=== PATIENT | male | born 1990 ===

== ENCOUNTER 2017-07-18 09:57 | Emergency (ER) | payer MEDICAID ==
[~2017-07-18] VITALS: Ht 180.3 cm; Wt 90.7 kg
--- NOTE | 2017-07-18 10:10 | NUR ---
Pt.was seen by Cruz with new orders.
[2017-07-18] MEDS ORDERED: ALBUTEROL SULFATE 2.5 MG/3 ML NEBU NEB ONE ×2 (10:15→10:45)
[2017-07-18] MEDS ORDERED: IPRATROPIUM BROMIDE 0.5 MG/2.5 ML NEBU NEB ONE ×2 (10:15→10:45)
[2017-07-18] MEDS ORDERED: predniSONE 10 MG TABLET PO ONE (10:15)
[2017-07-18 10:24] LABS: BASOPHILS # (AUTO) 0.1 K/uL (0.0-8.0); BASOPHILS % (AUTO) 0.6 % (0.0-2.0); EOSINOPHILS # (AUTO) 0.8 K/uL (0.0-0.7); EOSINOPHILS % (AUTO) 6.1 % (0.0-7.0); HEMATOCRIT 47.5 % (36.7-47.1); HEMOGLOBIN 16.5 g/dL (12.5-16.3); LYMPHOCYTES % (AUTO) 30.2 % (20.5-51.5); MEAN CORPUSCULAR HEMOGLOBIN 29.5 uug (23.8-33.4); MEAN CORPUSCULAR HGB CONC 35 g/dL (32.5-36.3); MONOCYTES # (AUTO) 0.7 K/uL (2.0-10.0); MONOCYTES % (AUTO) 5.1 % (0.0-11.0); NEUTROPHILS # (AUTO) 7.6 K/uL (1.8-8.9); PLATELET COUNT (AUTO) 314 K/uL (152-348); RED BLOOD CELL COUNT(AUTO) 5.59 MIL/uL (4.06-5.63); WHITE BLOOD COUNT (AUTO) 13.1 K/uL (3.6-10.2)
[2017-07-18] MEDS ORDERED: IPRATROPIUM BROMIDE 0.5 MG/2.5 ML NEBU ONE ×2 (10:30→11:15)
[2017-07-18] MEDS ORDERED: ALBUTEROL SULFATE 2.5 MG/3 ML NEBU ONE ×2 (10:30→11:15)
[2017-07-18 10:31] LABS: POTASSIUM 4.1 mmol/L (3.5-5.1)
[2017-07-18] MEDS ORDERED: predniSONE 10 MG TABLET ONE (10:37)
--- NOTE | 2017-07-18 11:28 | NUR ---
Pt.on cont.HHN Tx,feeling more comfortble,no s/s of acute distress.
[2017-07-18 12:06] VITALS: BP 113/84
== END 2017-07-18 12:15 | disposition home or self-care (01) ==
LOC: ER 09:57
DX: J45.909 Unspecified asthma, uncomplicated (principal); F17.210 Nicotine dependence, cigarettes, uncomplicated
CPT/HCPCS: 36415; 71045; 85025; 93005; A4663; J3590; J7512

== ENCOUNTER 2017-08-22 21:56 | Emergency (ER) | payer MEDICAID ==
[~2017-08-22] VITALS: Ht 175.3 cm; Wt 83.9 kg
[2017-08-22] MEDS ORDERED: OLANZAPINE 10 MG VIAL IM ONE ×2 (23:00→23:14)
[2017-08-22] MEDS ORDERED: diphenhydrAMINE 50 MG/1 ML VIAL ONE (23:13)
[2017-08-22] MEDS ORDERED: diphenhydrAMINE 50 MG/1 ML VIAL IM ONE (23:15)
--- NOTE | 2017-08-22 23:20 | NUR ---
PATIENT YELLING,CONFUSED AND ATTEMPTING TO REMOVE HANDCUFFS. UNCOOPERATIVE WITH WITH [employer] AND ER STAFF MEMBERS. FRED ARITA CALLED
[2017-08-22] MEDS: diphenhydrAMINE 50 MG/1 ML VIAL IM ONE ×2 (23:24→23:34)
[2017-08-23] MEDS ORDERED: LORAZEPAM 2 MG/1 ML VIAL IM ONE (01:00)
[2017-08-23] MEDS ORDERED: LORAZEPAM 2 MG/1 ML VIAL ONE (01:35)
--- NOTE | 2017-08-23 04:20 | NUR ---
Patient calm,sleeping released restraints on patient
[2017-08-23 04:34] LABS: BASOPHILS % (AUTO) 0.3 % (0.0-2.0); EOSINOPHILS # (AUTO) 0.3 K/uL (0.0-0.7); EOSINOPHILS % (AUTO) 2.9 % (0.0-7.0); HEMATOCRIT 45.9 % (36.7-47.1); HEMOGLOBIN 15.4 g/dL (12.5-16.3); LYMPHOCYTES # (AUTO) 4.6 K/uL (20.0-40.0); MEAN CORPUSCULAR HEMOGLOBIN 29.1 uug (23.8-33.4); MEAN CORPUSCULAR HGB CONC 34 g/dL (32.5-36.3); MEAN CORPUSCULAR VOLUME 86.6 fL (73.0-96.2); MONOCYTES % (AUTO) 8.7 % (0.0-11.0); NEUTROPHILS # (AUTO) 5.3 K/uL (1.8-8.9); NEUTROPHILS % (AUTO) 47.1 % (38.5-71.5); PLATELET COUNT (AUTO) 285 K/uL (152-348); WHITE BLOOD COUNT (AUTO) 11.3 K/uL (3.6-10.2)
[2017-08-23 04:43] LABS: CARBON DIOXIDE 24 mmol/L (21-32); CHLORIDE 103 mmol/L (98-107); ETHANOL < 3 MG/DL (0-0); GLUCOSE 92 mg/dL (74-106); POTASSIUM 3.6 mmol/L (3.5-5.1); UREA NITROGEN, BLOOD 10 mg/dL (7-18)
[2017-08-23 04:49] LABS: ALANINE AMINOTRANSFERASE 41 U/L (16-63); ALKALINE PHOSPHATASE 110 U/L (50-136); ASPARTATE AMINOTRANSFERASE 38 U/L (15-37); BILIRUBIN,DIRECT 0.1 mg/dL (0.0-0.2); BILIRUBIN,TOTAL 1.1 mg/dL (0.2-1.0)
--- NOTE | 2017-08-23 05:00 | NUR ---
Patient sleeping and calm with no distress noted. Offered water, food and toilet but patient refused
--- NOTE | 2017-08-23 06:59 | NUR ---
Patient in bed sleeping, no acute signs of distress, has hard restraint on left arm.
--- NOTE | 2017-08-23 07:11 | NUR ---
Passed SBAR report to Preethi PARADA.
--- NOTE | 2017-08-23 07:11 | NUR ---
Jil higgins in ED - 08/23/17 at 0839 by DARIEL Received pt asleep, easily arousable- per previous nurse, this patient is still needs to void and provide urine sample & also for medical clearance, respiration:AYESHA roper
--- NOTE | 2017-08-23 07:11 | NUR ---
Hands off report received from previous nurse- 1.) pt needs to give urine specimen 2.) still for medical clearance by our ER doctor 3.) for possible psych evaluation after medical clearance. Patient is asleep, easily arousable by soft touch, HODGE, respiration:easy, skin warm and dry
--- NOTE | 2017-08-23 08:45 | NUR ---
Patient is more alert, pt refuses to give urine sample, MD is at bedside.
--- NOTE | 2017-08-23 12:22 | NUR ---
Lunch tray is at bedside. Patient is still sleeping, easily arousable, moving on the gurney spontaneously, respiration:nonlabored/easy, still for urine specimen & medical/psych clearance.
--- NOTE | 2017-08-23 14:19 | NUR ---
Patient is still refusing to provided urine sample. Patient is AOx4, calm & cooperative at this time, MD aware.
--- NOTE | 2017-08-23 14:31 | NUR ---
Patient eloped per MD.
== END 2017-08-23 14:37 | disposition left against medical advice (07) ==
LOC: EDBD → ER 21:56
DX: F29 Unspecified psychosis not due to a substance or known physiological condition (principal)
CPT/HCPCS: 36415; 85025; A4663; G0480; J1200; J2060; J2358

== ENCOUNTER 2017-08-23 17:22 | Emergency (ER) | payer MEDICAID ==
[~2017-08-23] VITALS: Ht 175.3 cm; Wt 83.9 kg
[2017-08-23] MEDS ORDERED: diphenhydrAMINE 50 MG/1 ML VIAL IM ONE (17:30)
[2017-08-23] MEDS ORDERED: LORAZEPAM 2 MG/1 ML VIAL IM ONE (17:30)
[2017-08-23] MEDS ORDERED: OLANZAPINE 10 MG VIAL IM ONE ×2 (17:30→17:32)
[2017-08-23] MEDS ORDERED: diphenhydrAMINE 50 MG/1 ML VIAL ONE (17:32)
[2017-08-23] MEDS ORDERED: LORAZEPAM 2 MG/1 ML VIAL ONE (17:33)
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
--- NOTE | 2017-08-23 19:15 | NUR ---
Hands off report to marty Pride for urine specimen, medical clearance & possible psych evaluation by our own benz[employer] worker.
--- NOTE | 2017-08-23 19:25 | NUR ---
RECEIVED REPORT FROM KARMA WISE. PT IN BED IN FOUR POINT RESTRAINTS. PT IS DISORIENTED AND AGITATED. NO SIGNS OF DISTRESS WITNESSED AT THIS TIME. Addendum: 08/23/17 at 1940 by SHALINI MD NOTIFIED OF PT'S CURRENTLY CONDITION.
[2017-08-23] MEDS ORDERED: HALOPERIDOL LACTATE 5 MG/1 ML VIAL IM ONE (19:45)
[2017-08-23] MEDS ORDERED: HALOPERIDOL LACTATE 5 MG/1 ML VIAL ONE (19:54)
[2017-08-23 21:29] LABS: BASOPHILS % (AUTO) 0.5 % (0.0-2.0); EOSINOPHILS # (AUTO) 0.2 K/uL (0.0-0.7); EOSINOPHILS % (AUTO) 2.3 % (0.0-7.0); HEMOGLOBIN 15.9 g/dL (12.5-16.3); LYMPHOCYTES # (AUTO) 3.5 K/uL (20.0-40.0); LYMPHOCYTES % (AUTO) 36.2 % (20.5-51.5); MEAN CORPUSCULAR HEMOGLOBIN 29.2 uug (23.8-33.4); MEAN CORPUSCULAR HGB CONC 34 g/dL (32.5-36.3); MEAN CORPUSCULAR VOLUME 86.5 fL (73.0-96.2); MONOCYTES # (AUTO) 0.5 K/uL (2.0-10.0); MONOCYTES % (AUTO) 5.4 % (0.0-11.0); NEUTROPHILS # (AUTO) 5.3 K/uL (1.8-8.9); NEUTROPHILS % (AUTO) 55.6 % (38.5-71.5); PLATELET COUNT (AUTO) 293 K/uL (152-348); RED BLOOD CELL COUNT(AUTO) 5.44 MIL/uL (4.06-5.63); WHITE BLOOD COUNT (AUTO) 9.6 K/uL (3.6-10.2)
[2017-08-23 21:41] LABS: CARBON DIOXIDE 20 mmol/L (21-32); CHLORIDE 102 mmol/L (98-107); GLUCOSE 66 mg/dL (74-106); POTASSIUM 3.6 mmol/L (3.5-5.1); UREA NITROGEN, BLOOD 17 mg/dL (7-18)
[2017-08-23 21:42] LABS: ETHANOL < 3 MG/DL (0-0)
[2017-08-23 21:47] LABS: ALANINE AMINOTRANSFERASE 49 U/L (16-63); ALKALINE PHOSPHATASE 106 U/L (50-136); ASPARTATE AMINOTRANSFERASE 54 U/L (15-37); BILIRUBIN,DIRECT 0.1 mg/dL (0.0-0.2); BILIRUBIN,TOTAL 0.8 mg/dL (0.2-1.0); TOTAL PROTEIN, SERUM 8.2 g/dL (6.4-8.2)
[2017-08-23 21:49] LABS: ACETAMINOPHEN < 2.0 ug/mL (10-30)
[2017-08-23 22:07] LABS: *AMPHETAMINE, URINE POSITIVE (NEGATIVE); *BARBITURATE, URINE NEGATIVE (NEGATIVE); *CANNABINOID, URINE NEGATIVE (NEGATIVE); *COCCAINE, URINE NEGATIVE (NEGATIVE); *OPIATE, URINE NEGATIVE (NEGATIVE); *PHENCYCLIDINE SCREEN,URINE NEGATIVE (NEGATIVE)
--- NOTE | 2017-08-23 22:09 | NUR ---
PT IN BED RESTING WITH EYES CLOSED. VSS. BREATH SOUNDS REGULAR AND UNLABORED. NO SIGNS OF DISTRESS WITNESSED AT THIS TIME.
[2017-08-23 22:13] LABS: *BLOOD, URINE NEGATIVE (NEGATIVE); *CLARITY,URINE SLIGHTLY CLOUDY (CLEAR); *COLOR,URINE YELLOW (YELLOW); *KETONES,URINE 2+ (NEGATIVE); *PROTEIN,URINE 1+ (NEGATIVE); *UROBILINOGEN,URINE 0.2 E.U./dl (NORMAL); LEUKOCYTE ESTERASE ,URINE NEGATIVE (NEGATIVE); NITRITE, URINE NEGATIVE (NEGATIVE); PH,URINE 5.5 (5.0-8.0); UGLUCOSE NEGATIVE (NEGATIVE)
[2017-08-23 22:26] LABS: *BILIRUBIN,URIN 2+ (NEGATIVE)
[2017-08-23 22:31] LABS: BACTERIA,URINE NONE SEEN /HPF (NONE SEEN); MUCUS,URINE FEW /LPF (0-FEW); RBC,URINE 0-3 /HPF (0-3); SQUAMOUS EPITHELIAL CELL,UR FEW /HPF (NONE SEEN); WBC,URINE 0-3 /HPF (0-3)
[2017-08-23] MEDS ORDERED: IV NORMAL SALINE 1000 ML BAG IV ONE (22:45)
--- NOTE | 2017-08-23 23:08 | NUR ---
PT IN BED. CONTRACT FOR SAFETY MADE WITH PT. PT REDUCE TO ONLY TWO POINT RESTRAINTS. PT RESTING WITH EYES CLOSED. PT OFFERED BEVERAGE AND TOILETING. PT WANTED WATER AND TOILETING WAS REFUSED. VSS. NO SIGNS OF DISTRESS WITNESSED AT THIS TIME.
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
--- NOTE | 2017-08-24 04:09 | NUR ---
PT IN BED RESTING WITH EYES CLOSED. VSS. BREATH SOUNDS REGULAR AND UNLABORED. NO SIGNS OF DISTRESS WITNESSED.
[2017-08-24] MEDS ORDERED: ONDANSETRON ODT 4 MG TAB.RAPDIS ONE (07:06)
[2017-08-24] MEDS ORDERED: ONDANSETRON ODT 4 MG TAB.RAPDIS SL ONE (07:15)
--- NOTE | 2017-08-24 07:30 | NUR ---
Pt is arousable and states where he is. Pt contract for safety, stating "just want to sleep". Restraines removed. Fluid offered, breakfast provided.
--- NOTE | 2017-08-24 07:35 | NUR ---
Panchito Spring from [facility] will be here for psych eval around 0900.
--- NOTE | 2017-08-24 08:35 | NUR ---
Patient is resting comfortably in bed with eyes closed, NAD noted. 1 to 1 sitter for safety.
--- NOTE | 2017-08-24 09:40 | NUR ---
Panchito Spring from [facility] at the bedside for psych eval.
--- NOTE | 2017-08-24 10:20 | NUR ---
Per ER MD and [facility] livestock speculator pt will be discharge home.
--- NOTE | 2017-08-24 11:30 | NUR ---
Pt is more awake and alert, able to walk w/ steady gait. Fluids provided.
--- NOTE | 2017-08-24 12:07 | NUR ---
IV removed. Catheter intact and site benign. Pressure and 4x4 gauze applied to site. No bleeding noted.
[2017-08-24 12:22] VITALS: BP 109/50
--- NOTE | 2017-08-24 12:22 | NUR ---
Patient discharged to home in stable conditon. Written and verbal after care instructions given. Patient verbalizes understanding of instructions. Pt is waiting for ride home.
== END 2017-08-24 12:24 | disposition home or self-care (01) ==
LOC: ER 17:22
DX: F29 Unspecified psychosis not due to a substance or known physiological condition (principal)
CPT/HCPCS: 36415; 80307; 85025; 93005; A4663; C1758; G0480; G0480-TC; J1200; J1630; J2060; J2358; J7030; Q0162

== ENCOUNTER 2018-06-22 21:26 | Emergency (ER) | payer MEDICAID ==
[~2018-06-22] VITALS: Ht 172.7 cm; Wt 61.2 kg
[2018-06-22] MEDS ORDERED: IV NORMAL SALINE 1000 ML BAG IV ONE (22:00)
[2018-06-22] MEDS ORDERED: LORAZEPAM 2 MG/1 ML VIAL IV ONE (22:00)
[2018-06-22] MEDS ORDERED: HALOPERIDOL LACTATE 5 MG/1 ML VIAL IV ONE (22:00)
[2018-06-22] MEDS ORDERED: HALOPERIDOL LACTATE 5 MG/1 ML VIAL ONE (22:27)
[2018-06-22 22:28] LABS: BASOPHILS # (AUTO) 0.1 K/uL (0.0-8.0); BASOPHILS % (AUTO) 0.6 % (0.0-2.0); EOSINOPHILS # (AUTO) 0.1 K/uL (0.0-0.7); EOSINOPHILS % (AUTO) 0.7 % (0.0-7.0); HEMATOCRIT 42.6 % (36.7-47.1); HEMOGLOBIN 14.9 g/dL (12.5-16.3); LYMPHOCYTES # (AUTO) 2.6 K/uL (20.0-40.0); LYMPHOCYTES % (AUTO) 22.6 % (20.5-51.5); MEAN CORPUSCULAR HEMOGLOBIN 30.7 uug (23.8-33.4); MEAN CORPUSCULAR HGB CONC 35 g/dL (32.5-36.3); MEAN CORPUSCULAR VOLUME 87.7 fL (73.0-96.2); MONOCYTES # (AUTO) 0.7 K/uL (2.0-10.0); NEUTROPHILS % (AUTO) 70.1 % (38.5-71.5); PLATELET COUNT (AUTO) 387 K/uL (152-348); RED BLOOD CELL COUNT(AUTO) 4.86 MIL/uL (4.06-5.63); WHITE BLOOD COUNT (AUTO) 11.4 K/uL (3.6-10.2)
[2018-06-22] MEDS ORDERED: LORAZEPAM 2 MG/1 ML VIAL ONE (22:28)
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
[2018-06-22 22:38] LABS: CARBON DIOXIDE 22 mmol/L (21-32); CHLORIDE 103 mmol/L (98-107); CREATININE 1.1 mg/dL (0.6-1.3); GLUCOSE 96 mg/dL (74-106); POTASSIUM 3.6 mmol/L (3.5-5.1); UREA NITROGEN, BLOOD 15 mg/dL (7-18)
[2018-06-22 22:46] LABS: ETHANOL < 3 MG/DL (0-0)
[2018-06-22 22:54] LABS: ACETAMINOPHEN < 2.0 ug/mL (10-30); ALANINE AMINOTRANSFERASE 26 U/L (16-63); ALKALINE PHOSPHATASE 109 U/L (50-136); ASPARTATE AMINOTRANSFERASE 17 U/L (15-37); BILIRUBIN,DIRECT 0.1 mg/dL (0.0-0.2); BILIRUBIN,TOTAL 0.6 mg/dL (0.2-1.0); TOTAL PROTEIN, SERUM 8.1 g/dL (6.4-8.2)
[2018-06-22 23:06] LABS: THYROID STIMULATING HORMONE 0.849 mIU/mL (0.358-3.740)
--- NOTE | 2018-06-23 00:09 | NUR ---
Pt. resting in bed, no acute distress,
[2018-06-23] MEDS ORDERED: LIDOCAINE 2% (UROJET) 10 ML JELLY MM ONE ×2 (00:31→01:00)
--- NOTE | 2018-06-23 01:15 | NUR ---
Pt. able to follow commands and cooperate w/o difficulty, taken out of restraints, no acute distress,
[2018-06-23 01:18] LABS: *BILIRUBIN,URIN 1+ (NEGATIVE); *BLOOD, URINE Trace-intact (NEGATIVE); *CLARITY,URINE CLEAR (CLEAR); *COLOR,URINE AMBER (YELLOW); *KETONES,URINE 1+ (NEGATIVE); *UROBILINOGEN,URINE 0.2 E.U./dl (NORMAL); LEUKOCYTE ESTERASE ,URINE NEGATIVE (NEGATIVE); NITRITE, URINE NEGATIVE (NEGATIVE); PH,URINE 5.5 (5.0-8.0); UGLUCOSE NEGATIVE (NEGATIVE)
--- NOTE | 2018-06-23 01:22 | NUR ---
Pt. resting in bed, no acute distress,
[2018-06-23 01:25] LABS: BACTERIA,URINE NONE SEEN /HPF (NONE SEEN); COARSE GRANULAR CASTS,URINE 0-3 /LPF; SQUAMOUS EPITHELIAL CELL,UR FEW /HPF (NONE SEEN); WBC,URINE 0-3 /HPF (0-3)
[2018-06-23 01:37] LABS: *AMPHETAMINE, URINE POSITIVE (NEGATIVE); *BARBITURATE, URINE NEGATIVE (NEGATIVE); *CANNABINOID, URINE NEGATIVE (NEGATIVE); *COCCAINE, URINE NEGATIVE (NEGATIVE); *OPIATE, URINE NEGATIVE (NEGATIVE); *PHENCYCLIDINE SCREEN,URINE NEGATIVE (NEGATIVE)
--- NOTE | 2018-06-23 06:28 | NUR ---
Patient discharged to home in stable conditon. Written and verbal after care instructions given. Patient verbalizes understanding of instructions. Pt. d/c w/ prescription per MD order, all d/c papers signed, all belongings w/ pt., ID band/IV removed, ambulated out of unit w/ steady gait, no acute dsitress,
== END 2018-06-23 06:30 | disposition home or self-care (01) ==
LOC: ER 21:28
DX: S05.11XA Contusion of eyeball and orbital tissues, right eye, initial encounter (principal); S09.90XA Unspecified injury of head, initial encounter; F15.10 Other stimulant abuse, uncomplicated; F22 Delusional disorders; Z90.49 Acquired absence of other specified parts of digestive tract; X58.XXXA Exposure to other specified factors, initial encounter; Y93.89 Activity, other specified; Y92.89 Other specified places as the place of occurrence of the external cause; Y99.8 Other external cause status
CPT/HCPCS: 36415; 70450; 80048; 80076; 80307; 81001; 84443; 85025; 85730; 93005; 96374; 96375; 99284; G0480 ×2; G0481; J1630; J2060; A4663; J7030

== ENCOUNTER 2020-04-24 04:19 | Emergency (ER) | payer MEDICAID ==
[~2020-04-24] VITALS: Ht 172.7 cm; Wt 79.4 kg
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
[2020-04-24] MEDS ORDERED: TETRACAINE HCL 0.5% OPHT DROP 2 ML BOTTLE OP ONE (04:30)
[2020-04-24] MEDS ORDERED: ONDANSETRON ODT 4 MG TAB.RAPDIS SL ONE (04:30)
[2020-04-24] MEDS ORDERED: GENTAMICIN SULFATE 0.1% OINT 15 GM TUBE TP ONE (04:30)
[2020-04-24] MEDS ORDERED: TETRACAINE HCL 0.5% OPHT DROP 2 ML BOTTLE ONE (04:30)
[2020-04-24] MEDS ORDERED: HYDROCODONE/APAP 10-325 MG TABLET PO ONE (04:30)
[2020-04-24] MEDS ORDERED: GENTAMICIN SULFATE OPHT OINT 3.5 GM TUBE ONE (04:36)
[2020-04-24] MEDS ORDERED: HYDROCODONE/APAP 5-325MG TABLET ONE (04:36)
[2020-04-24] MEDS ORDERED: ONDANSETRON ODT 4 MG TAB.RAPDIS ONE (04:36)
[2020-04-24] MEDS ORDERED: NEOMY/BACITRA/POLYMYXIN B OINT UD PACKET TP ONE ×2 (04:38→04:45)
--- NOTE | 2020-04-24 04:42 | NUR ---
Patient discharged to home in stable condition. Written and verbal after care instructions given. Patient verbalizes understanding of instructions. Stressed follow up or return to ER for worsening s/s. Patient left with stable gait.
== END 2020-04-24 04:44 | disposition home or self-care (01) ==
LOC: ER 04:22
DX: T65.893A Toxic effect of other specified substances, assault, initial encounter (principal); T20.49XA Corrosion of unspecified degree of multiple sites of head, face, and neck, initial encounter; T26.62XA Corrosion of cornea and conjunctival sac, left eye, initial encounter; T26.61XA Corrosion of cornea and conjunctival sac, right eye, initial encounter; Y92.512 Supermarket, store or market as the place of occurrence of the external cause; F19.10 Other psychoactive substance abuse, uncomplicated
CPT/HCPCS: A4663; Q0162